=== PATIENT | female | born 1945 | race African-American/Black ===

== ENCOUNTER 2017-01-26 14:25 | Emergency (ER) | payer MEDICARE ==
[~2017-01-26 14:25] MED LIST: ADVIL PO; ALLEGRA180 PO; ALLERGY MED PO; ANTIHISTAMINE PO; BACDS PO; CELEXA20 PO; CELEXA40 MG PO; CITALOPRAM PO; CLIMARA 0.050.05 MG TOP; COMBIVENT INH; CYANO1000T PO; DYAZIDE1 CAP PO; FLONASE NAS; HALF81 PO; HUMIBID1200 MG PO; IBU400 PO; KAON-CL-1010 MEQ PO; KLOR-CON M1010 MEQ PO; LEVAQUIN750 MG PO; LORTAB 5 PO; MAGNESIUM OXIDE PO; MAX25 PO; MEVACOR40 MG PO; P20 PO; POTASSIUM PO; PRAVACHOL40 MG PO; PRAVACHOL80 MG PO; PRAVASTATIN PO; PROAIR HFA INH; PROTONIX PO; SENTAB PO; SYMBICORT 160/41 INH INH; T PO; TEARS NATURA OPH; TRIAMTERENE PO; URO-MAG140 MG PO; VALTREX5 PO; VEGETABLE LAXATIVE PO; X25 PO; [UNRECOGNIZED DRUG - OTHER] OR; [UNRECOGNIZED DRUG - REMARK] OR
== END 2017-01-26 15:30 | disposition left against medical advice (07) ==
LOC: ER 14:25
DX: Z53.21 Procedure and treatment not carried out due to patient leaving prior to being seen by health care provider (principal)
CPT/HCPCS: 93005